=== PATIENT | female | born 1950 | race Caucasian/White ===

== ENCOUNTER → 2022-02-06 | Outpatient (CLI) | payer MEDICARE ==
[~2022-02-06] MED LIST: REGADENOSON 0.4 MG/5 ML SYRINGE IV PRN
--- NOTE | 2022-02-06 11:45 | CA ---
Transthoracic Echo Report Name: Roberta Naqvi Age: 71 Gender: F : 1950 Exam Date: 02/06/2022 08:25 Exam Location: [facility] Ht (in): 64 Wt (lb): 170 Ordering Physician: Michele Mueller MD Attending/Referring Phys: Michele Mueller MD Lab Systems Analyst Julieth Moss, [facility] Procedure CPT: Indications: R94.31 ABNORMAL EKG Cardiac Hx: Technical Quality: Good Contrast 1: Total Dose (mL): Contrast 2: Total Dose (mL): MEASUREMENTS (Male / Female) Normal Values 2D ECHO LV Diastolic Diameter PLAX 4.0 cm 4.2 - 5.9 / 3.9 - 5.3 cm LV Systolic Diameter PLAX 4.0 cm IVS Diastolic Thickness 1.2 cm 0.6 - 1.0 / 0.6 - 0.9 cm LVPW Diastolic Thickness 1.7 cm 0.6 - 1.0 / 0.6 - 0.9 cm LV Relative Wall Thickness 0.7 RV Internal Dim ED PLAX 3.7 cm LA Systolic Diameter LX 3.6 cm 3.0 - 4.0 / 2.7 - 3.8 cm LA Volume 57.4 cm??? 18 - 58 / 22 - 52 cm??? M-MODE Aortic Root Diameter MM 2.5 cm LA Systolic Diameter MM 3.6 cm LA Ao Ratio MM 1.5 MV E Point Septal Separation 0.3 cm AV Cusp Separation MM 1.7 cm DOPPLER MV Area PHT 3.0 cm??? Mitral E Point Velocity 36.2 cm/s Mitral A Point Velocity 46.5 cm/s Mitral E to A Ratio 0.8 MV Deceleration Time 254.5 ms MV E' Velocity 4.3 cm/s Mitral E to MV E' Ratio 8.4 TR Peak Velocity 251.1 cm/s TR Peak Gradient 25.2 mmHg Right Ventricular Systolic Press 30.2 mmHg FINDINGS Left Ventricle Left ventricular ejection fraction is estimated at 50-55%. Mildly increased left ventricular wall thickness. Right Ventricle Normal right ventricular size and function. Right ventricular systolic pressure within normal limits. Right Atrium Normal right atrial size. Left Atrium Mildly increased left atrial volume. Mitral Valve Structurally normal mitral valve. Mild mitral regurgitation. Aortic Valve Trileaflet aortic valve. Tricuspid Valve Structurally normal tricuspid valve. Mild tricuspid regurgitation. Pulmonic Valve Structurally normal pulmonic valve. Pericardium Echo free space anterior to the right ventricle likely represents a fat pad. Aorta Normal size aortic root and proximal ascending aorta. CONCLUSIONS Normal left ventricular dimension and systolic function Normal intracardiac valves Previewed by: Dr. Tomy Jorgensen MD (Electronically Signed) Final Date: 06 February 2022 11:44
--- NOTE | 2022-02-06 11:47 | CA ---
Lexiscan Nuclear Stress Test Report Name: Roberta Naqvi Exam Date: 02/06/2022 09:43 Exam Location: [facility] Ht (in): Wt (lb): BSA: Ordering Phys: Michele Mueller MD Referring Phys: Michele Mueller MD Technologist: DONALDO,, Age: 71 Gender: F : 1950 Procedure CPT: Indications: R94.31 ABNORMAL EKG ICD-10 Codes: Patient History: Abnormal EKG / Pre surgical Medications: Meds past 24 hrs: Pretest Chest Pain: STRESS TEST Lexiscan Protocol Exercise Duration (min:sec): 01:[address] Depressions (mm): Angina Score: Sesay Score: Resting HR (bpm): 87 Peak HR (bpm): 111 Resting BP (mmHg): 169 / 87 Peak BP (mmHg): 158 / 78 MPHR: 147 Target HR: 125 % MPHR: 76 METS: 1.0 Total Dose: Peak Dose: Atropine: Double Product: 36990 BP Response: Stress Termination: INFUSION COMPLETE Stress Symptoms: NO SYMPTOMS Stress Summary: ECG ANALYSIS Resting ECG: Stress ECG: CONCLUSIONS Nondiagnostic electrocardiogram stress testing response to Lexiscan These follow-up on the Cardiolite portion Dr. Tomy Jorgensen MD (Electronically Signed) Final Date: 06 February 2022 11:46
--- NOTE | 2022-02-06 12:15 | NM ---
EXAMINATION TYPE: NM stress lexiscan cardiolite DATE OF EXAM: 02/06/2022 COMPARISON: NONE HISTORY: Abnormal EKG. History of hypertension. TECHNIQUE: After the intravenous administration of 9.7 mCi Tc 99m Sestamibi - Cardiolite resting SPE CT images acquired 45 minutes post injection. The patient received 0.4mg Lexiscan, 25.2 mCi Tc 99m Sestamibi - Stress images obtained [address] injection FINDINGS: Review of stress and rest SPECT images demonstrates no distinct perfusion abnormality. Gated analysi s shows normal wall motion with an estimated left ventricular ejection fraction of 65 %. IMPRESSION: No scintigraphic evidence for reversible ischemia.
== END | disposition home or self-care (01) ==
LOC: RADNMMAIN 07:39
PROVIDERS: ATTEND Family Medicine
DX: I10 Essential (primary) hypertension (principal); R94.31 Abnormal electrocardiogram [ECG] [EKG]
CPT/HCPCS: 93017; 93306; 78452; A9500; J2785

== ENCOUNTER → 2022-02-17 | Outpatient (CLI) | payer MEDICARE ==
--- NOTE | 2022-02-17 16:35 | BD ---
EXAMINATION TYPE: Axial Bone Density DATE OF EXAM: 02/17/2022 COMPARISON: NEW TO [facility] FOR DEXA STUDIES, BASELINE STUDY CLINICAL HISTORY: 71 years year old Female. ICD-10 CODE: Z13.820 screening Height: 62 Weight: 170 FRAX RISK QUESTIONS: Family History (Parent hip fracture): YES RISK FACTORS HISTORY OF: Family History of Osteoporosis: YES MOTHER AND BOTH GR GRAND [place] AND GREAT [place] MO...+ HIP FXs Postmenopausal woman: YES AT 50 Lost more than 2 inches in height since high school: YES Frequent falls: UNSTEADY...CANE USE Hyperparathyroidism: NO Adrenal Insufficiency: NO MEDICATIONS: Additional Medications: MELOXICAM, BP MEDS, Additional History: CHRONIC BONE PAIN, HYPERTENSION EXAM MEASUREMENTS: Bone mineral densitometry was performed using the [employer] System. Bone mineral density as measured about the Lumbar spine is: ----- L1-L4(G/cm2): 1.224 T Score Values are as follows: ----- L1: 1.0 ----- L2: 0.7 ----- L3: 0.5 ----- L4: -1.3 ----- L1-L4: 0.4 Bone mineral density BASELINE STUDY Bone mineral density about the R hip (g/cm2): 0.784 Bone mineral density about the L hip (g/cm2): 0.922 T Score values are as follows: -----R Neck: -0.4 -----L Neck: -1.3 -----R Total: -1.8 -----L Total: -0.7 Bone mineral density IS A BASELINE STUDY TODAY FRAX%s: The graph provided illustrates a 15.2% chance for a major osteoporotic fx and a 5.1% chance f or the hips probability for fx in 10 years time. IMPRESSION: Normal (Values between +1 and -1 indicate normal bone mass). Consider repeating this study in 5 year s or sooner if there is some new clinical indication. NOTE: T-SCORE=SD OF THE YOUNG ADULT MEAN.
--- NOTE | 2022-02-20 09:09 | MM ---
Reason for Exam: Screening (asymptomatic). Last mammogram was performed 10 year(s) and 8 month(s) ago. Patient History: Menarche at age 9. First Full-Term at age 18. Postmenopausal. Risk Values: Lisa 5 year model risk: 1.7%. NCI Lifetime model risk: 4.3%. Prior Study Comparison: 02/16/1997 Bilateral Screening Mammogram, [facility]. 03/21/2001 Bilateral Screening Mammogram, [facility]. 06/22/2011 Bilateral Screening Mammogram, [facility]. Tissue Density: There are scattered fibroglandular densities. Findings: Analyzed By CAD. There is no suspicious group of microcalcifications or new suspicious mass in either breast. Stable chronic nodularity within the left breast. Benign vascular calcifications within both breasts. No significant change from prior examinations. Overall Assessment: Benign, BI-RAD 2 Management: Screening Mammogram of both breasts in 1 year. A clinical breast exam by your physician is recommended on an annual basis and results should be correlated with mammographic findings. Electronically signed and approved by: Jose Escobar D.O.
== END | disposition home or self-care (01) ==
LOC: RADMAMWWP 09:48
PROVIDERS: ATTEND Family Medicine
DX: Z12.31 Encounter for screening mammogram for malignant neoplasm of breast (principal); Z13.820 Encounter for screening for osteoporosis; Z78.0 Asymptomatic menopausal state
CPT/HCPCS: 77063; 77067; 77080

== ENCOUNTER → 2022-03-08 | Outpatient (CLI) | payer MEDICARE ==
[2022-03-08 09:59] LABS: INR 0.9 (<1.2); Partial Thromboplastin Time 23.7 sec (22.0-30.0); Prothrombin Time 9.7 sec (9.0-12.0)
[2022-03-08 15:54] LABS: Appearance,Urine Clear (Clear); Bilirubin,Urine Negative (Negative); Blood,Urine Moderate (Negative); Color,Urine Yellow (Yellow); Ketones,Urine Negative (Negative); Nitrite,Urine Negative (Negative); Specific Gravity,Urine 1.024 (1.001-1.030); Urobilinogen,Urine 0.2 (0.2,1.0)
[2022-03-08 15:59] LABS: HGB 14.1 g/dL (12.0-15.0); MCH 29.7 pg (27.0-32.0); MCHC 32.8 g/dL (32.0-37.0); MCV 90.5 fL (80.0-97.0); Mean Platelet Volume 9.2 fL (9.5-12.2); NRBC Per 100 WBC 0 /100 WBCS (0.0-0.0); Platelet Count 286 X 10*3/uL (140-440); RBC 4.75 X 10*6/uL (4.10-5.20); RDW 12.8 % (11.5-14.5); WBC 6.31 X 10*3/uL (4.50-10.00)
[2022-03-08 16:12] LABS: Bacteria,Urine None Seen /HPF (None Seen)
[2022-03-08 16:26] LABS: African American GFR (CKD) 90.6 (60.0-200.0); Albumin 4.2 g/dL (3.8-4.9); Albumin/Globulin Ratio 1.91 (1.60-3.17); Anion Gap 10.4 mmol/L (10.00-18.00); BUN/Creat Ratio 16.91 Ratio (12.00-20.00); Blood Urea Nitrogen 12.8 mg/dL (9.0-27.0); Calcium 9.8 mg/dL (8.7-10.3); Carbon Dioxide 22.1 mmol/L (20.0-27.5); Globulin 2.2 g/dL (1.6-3.3); Non-African American GFR(CKD) 78.2 (60.0-200.0); Total Bilirubin 0.3 mg/dL (0.30-1.20); Total Protein 6.4 g/dL (6.2-8.2)
== END | disposition home or self-care (01) ==
LOC: LABPAT 08:11
PROVIDERS: ATTEND Orthopaedic Surgery
DX: Z01.812 Encounter for preprocedural laboratory examination (principal); M16.12 Unilateral primary osteoarthritis, left hip
CPT/HCPCS: 80053; 81001; 85027; 85610; 85730

== ENCOUNTER → 2022-03-10 | Outpatient (CLI) | payer MEDICARE | END | disposition home or self-care (01) | LOC: LABPAT 07:51 | PROVIDERS: ATTEND Orthopaedic Surgery | DX: Z01.812 Encounter for preprocedural laboratory examination (principal) | CPT/HCPCS: 87070 ==

== ENCOUNTER → 2023-03-05 | Outpatient (CLI) | payer MEDICARE ==
--- NOTE | 2023-03-08 08:01 | MM ---
Reason for Exam: Screening (asymptomatic). Last screening mammogram was performed 12 month(s) ago. Patient History: Menarche at age 9. First Full-Term at age 18. Postmenopausal. Risk Values: Lisa 5 year model risk: 1.7%. NCI Lifetime model risk: 4.0%. Prior Study Comparison: 03/21/2001 Bilateral Screening Mammogram, [facility]. 06/22/2011 Bilateral Screening Mammogram, [facility]. 02/17/2022 Bilateral MG 3D screening mammo w/cad, [facility]. Tissue Density: There are scattered fibroglandular densities. Findings: Analyzed By CAD. There is no suspicious group of microcalcifications or new suspicious mass in either breast. Stable chronic nodularity within the left breast. Benign vascular calcifications within both breasts. Overall Assessment: Benign, BI-RAD 2 Management: Screening Mammogram of both breasts in 1 year. A clinical breast exam by your physician is recommended on an annual basis and results should be correlated with mammographic findings. Note on Lisa scores and lifetime risk: 1. A Lisa score greater than 3% is considered moderate risk. If this is the case, consider specialist referral to assess eligibility for a risk reducing agent. If overall lifetime risk for the development of breast cancer is 20% or higher, the patient may qualify for future screening with alternating mammogram and breast MRI. Electronically signed and approved by: Jose Escobar D.O.
== END | disposition home or self-care (01) ==
LOC: RADMAMWWP 15:50
PROVIDERS: ATTEND Family Medicine
DX: Z12.31 Encounter for screening mammogram for malignant neoplasm of breast (principal); Z78.0 Asymptomatic menopausal state
CPT/HCPCS: 77063; 77067

== ENCOUNTER → 2024-03-06 | Outpatient (CLI) | payer MEDICARE ==
--- NOTE | 2024-03-06 12:10 | BD ---
EXAMINATION TYPE: Axial Bone Density DATE OF EXAM: 03/06/2024 CLINICAL HISTORY: 73 years old Female. ICD-10 CODE: Z78.0 Postmenopausal Height: 62.25 Weight: 163 FRAX RISK QUESTIONS: Family History (Parent hip fracture): no History of Fracture in Adulthood: no Secondary Osteoporosis: no RISK FACTORS HISTORY OF: Surgery to Hip(right/left): yes When: 2021 MEDICATIONS: Thyroid Medications: no Osteoporosis Medications: no EXAM MEASUREMENTS: Bone mineral densitometry was performed using the [employer] System. Bone mineral density as measured about the Lumbar spine is: ----- L1-L4(G/cm2): 1.272 T Score Values are as follows: ----- L1: 0.2 ----- L2: -0.2 ----- L3: 1.6 ----- L4: 1.3 ----- L1-L4: 0.8 Z Score Values are as follows: ----- L1: 1.7 ----- L2: 1.3 ----- L3: 3.0 ----- L4: 2.7 ----- L1-L4: 2.2 Bone mineral density has: Increased 3.9% since study of: 02/17/2022 Bone mineral density about the L Wrist (g/cm2): 0.496 T Score values are as follows: -----Dist. R+U: -4.4 -----Prox. R+U: -1.1 -----Radius total: -3.0 Z Score values are as follows: -----Dist. R+U: -2.1 -----Prox. R+U: 1.2 -----Radius total: -0.7 Bone mineral density baseline FRAX%s: none IMPRESSION: Osteoporosis (T Score less than -2.5). There is increased fracture risk and therapy is usually indicated based on age. Re-Screen 1-2 years. NOTE: T-SCORE=SD OF THE YOUNG ADULT MEAN. [facility], , 03/06/2024 12:08 PM
--- NOTE | 2024-03-10 11:48 | MM ---
Reason for Exam: Screening (asymptomatic). Last screening mammogram was performed 12 month(s) ago. Patient History: Menarche at age 9. First Full-Term at age 18. Postmenopausal. Risk Values: Lisa 5 year model risk: 1.7%. NCI Lifetime model risk: 3.8%. Prior Study Comparison: 06/22/2011 Bilateral Screening Mammogram, [facility]. 02/17/2022 Bilateral MG 3D screening mammo w/cad, [facility]. 03/05/2023 Bilateral MG 3D screening mammo w/cad, [facility]. Tissue Density: There are scattered areas of fibroglandular density. Findings: Analyzed By CAD. Right breast: There is no suspicious group of microcalcifications or new suspicious mass. Left breast: There is no suspicious group of microcalcifications or new suspicious mass. Overall Assessment: Negative, BI-RAD 1 Management: Screening Mammogram of both breasts in [address] [facility] will attempt to contact patient to return for supplemental views and ultrasound if indicated. Patient should continue monthly self-breast exams. A clinical breast exam by your physician is recommended on an annual basis. This exam should not preclude additional follow-up of suspicious palpable abnormalities. Note on Lisa scores and lifetime risk: 1. A Lisa score greater than 3% is considered moderate risk. If this is the case, consider specialist referral to assess eligibility for a risk reducing agent. 2. If overall lifetime risk for the development of breast cancer is 20% or higher, the patient may qualify for future screening with alternating mammogram and breast MRI. [facility], , 03/10/2024 11:45 AM. Electronically signed and approved by: Kris Best DO
== END | disposition home or self-care (01) ==
LOC: RADMAMWWP 10:21
PROVIDERS: ATTEND Family Medicine
CPT/HCPCS: 77063; 77067; 77080